=== PATIENT | female | born 1975 | race Caucasian/White ===

== ENCOUNTER 2018-10-09 13:43 | Emergency (ER) | payer SELFPAY ==
[2018-10-09] MEDS ORDERED: SODIUM CHLORIDE 0.9% (FLUSH) 10 ML SYG IV PRN (14:15)
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
--- NOTE | 2018-10-09 14:57 | CT ---
EXAM DESCRIPTION: Head CLINICAL HISTORY: cva COMPARISON: None available TECHNIQUE: Non contrast cranial CT This exam was performed according to our departmental dose-optimization program, which includes automated exposure control, adjustment of the mA and/or kV according to patient size and/or use of iterative reconstruction technique. FINDINGS: The upper extent of the maxillary sinuses appear opacified and there is partial opacification of the right mastoid tip consistent with at least mild mastoiditis. The bony calvarium is intact. Intracranial examination is essentially normal with no significant white matter disease and small normal ventricular system. No extra-axial fluid collections or subarachnoid or parenchymal hemorrhage or focal cortical or deep white matter low-density changes are noted. The third and fourth ventricles are midline. Additional abnormalities are not apparent. IMPRESSION: 1. Intact bony calvarium with opacified upper maxillary sinuses bilaterally and partial opacification of the right mastoid tip suggesting at least mild mastoiditis. 2. Negative CT of the brain intracranially with no specific abnormality noted. Electronically signed by: Humza Mitchell MD 10/09/2018 2:55 PM CDT
[2018-10-09] MEDS ORDERED: AMOXICILLIN & POT CLAVULANATE 875 MG TAB PO ONE (15:20)
[2018-10-09 15:46] VITALS: BP 135/92; TEMP 98.5; O2SAT 98
== END 2018-10-09 15:44 | disposition home or self-care (01) ==
LOC: ER 13:43
DX: J32.9 Chronic sinusitis, unspecified (principal); H70.91 Unspecified mastoiditis, right ear; R25.1 Tremor, unspecified; R47.81 Slurred speech; J45.909 Unspecified asthma, uncomplicated; Z91.040 Latex allergy status

== ENCOUNTER 2019-05-31 11:41 | Emergency (ER) | payer OTHER ==
[2019-05-31] MEDS ORDERED: ACETAMINOPHEN 500 MG TAB PO ONE (12:05)
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
--- NOTE | 2019-05-31 13:55 | RAD ---
EXAM DESCRIPTION: Shoulder,Right 2 or More Views CLINICAL HISTORY: pain COMPARISON: None Available. TECHNIQUE: Two views of the right shoulder. FINDINGS: There is adequate internal and external rotation. There is no fracture or dislocation. There are no significant degenerative changes observed. AC joint appears intact. No focal bone lesion. IMPRESSION: Negative for fracture or dislocation. Electronically signed by: Josr Velasquez MD 05/31/2019 1:54 PM CDT
--- NOTE | 2019-05-31 13:56 | RAD ---
EXAM DESCRIPTION: Lumbar Spine 3 Views CLINICAL HISTORY: pain COMPARISON: None Available. TECHNIQUE: AP/lateral/coned-down lateral FINDINGS: There is anatomic alignment of the vertebral bodies of the lumbar spine. Frontal view shows intact pedicles and transverse processes. Sacrum appears intact with normal SI joints. Lateral view shows no vertebral compressions. Disc height is well-preserved. Normal bony mineralization. No destructive lesion. IMPRESSION: No diagnostic abnormality. Electronically signed by: Josr Velasquez MD 05/31/2019 1:55 PM CDT
[2019-05-31] MEDS ORDERED: SODIUM CHLORIDE 0.9% 1000ML 1,000 ML IVS ONE (14:19)
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
--- NOTE | 2019-05-31 15:47 | CT ---
EXAM DESCRIPTION: CT ABDOMEN AND PELVIS WITH CONTRAST CLINICAL HISTORY: pain vomiting COMPARISON: None Available. TECHNIQUE: CT of the abdomen and pelvis are performed during IV bolus administration of 100 mL of Isovue 300. No oral contrast. FINDINGS: In the lower chest, the lung bases are clear. Heart size is normal. CT abdomen No calcified stones in the gallbladder. No gastric distention small bowel dilatation to suggest obstruction. The liver, spleen, pancreas, gallbladder, adrenal glands, stomach and kidneys are normal in appearance. No inflammation around the pancreas. No renal stones or hydronephrosis. No bowel dilatation to suggest obstruction. No free air or free fluid. CT pelvis Appendix is not identified. No inflammation around the cecum or terminal ileum or sigmoid colon. Bladder and distal ureters are negative for stones. Normal enhancement of pelvic vessels. No inguinal or lower pelvic adenopathy. Uterus is normal in size for age. Multiple nabothian cysts in the cervix. Tiny lesion in the upper uterine fundus could be small fibroid 3 mm. Right adnexal cyst measures 3.7 cm be ovarian or paraovarian. No follow-up imaging is officially recommended for this finding. Left ovary appears normal. Bone window images are negative for fracture or lytic lesion. Hemangioma in the proximal left femur incidentally noted within the adjacent bone island. Coronal and sagittal reformatted images confirm the findings. IMPRESSION: No acute upper abdominal process. Prominent ovarian or paraovarian cyst 3.7 cm in the right pelvis. This exam was performed according to our departmental dose-optimization program, which includes automated exposure control, adjustment of the mA and/or kV according to patient size and/or use of iterative reconstruction technique. Total DLP equals 386.23 mGycm. Electronically signed by: Josr Velasquez MD 05/31/2019 3:45 PM CDT
[2019-05-31 17:50] VITALS: BP 137/97; TEMP 98.3; O2SAT 100
== END 2019-05-31 17:28 | disposition home or self-care (01) ==
LOC: ER 11:41
DX: S40.011A Contusion of right shoulder, initial encounter (principal); M54.5 Low back pain; N83.201 Unspecified ovarian cyst, right side; J45.909 Unspecified asthma, uncomplicated; V49.59XA Passenger injured in collision with other motor vehicles in traffic accident, initial encounter; Y92.410 Unspecified street and highway as the place of occurrence of the external cause; Z91.040 Latex allergy status
CPT/HCPCS: 36415; 71045; 72100; 73030; 74177; 80053; 81001; 81025; 83690; 84484; 85025; 85610; 85730; 87077; 87086; 87186; 93005; J7030